=== PATIENT | male | born 1975 | race Caucasian/White ===

== ENCOUNTER 2017-02-09 12:38 | Observation (INO) | payer SELFPAY ==
[2017-02-09 14:41] LABS: BASOPHILS % (AUTO) 0.1 % (0.2-1.0); EOSINOPHILS % (AUTO) 0.1 % (0.9-2.9); HEMATOCRIT 45.3 % (42.0-54.0); HEMOGLOBIN 15.2 g/dL (13.5-18.0); LYMPHOCYTES # (AUTO) 0.6 X10^3/uL (1.3-2.9); LYMPHOCYTES % (AUTO) 4.4 % (21.0-51.0); MEAN CORPUSCULAR HGB CONC 33.6 g/dL (33.0-35.0); MEAN CORPUSCULAR VOLUME 86.3 fL (80.0-100.0); MEAN PLATELET VOLUME 10.2 fL (7.4-11.0); MONOCYTES # (AUTO) 0.1 x10^3/uL (0.3-0.8); MONOCYTES % (AUTO) 0.8 % (0.0-13.0); NEUTROPHILS # (AUTO) 12.4 x10^3/uL (2.2-4.8); NEUTROPHILS % (AUTO) 94.6 % (42.0-75.0); PLATELET COUNT 134 X10^3/uL (150.0-450.0); RED BLOOD COUNT 5.25 X10^6/uL (4.7-6.0); RED CELL DISTRIBUTION WIDTH 13.9 % (11.6-16.5); WHITE BLOOD COUNT 13.1 X10^3/uL (3.6-10.0)
[2017-02-09] MEDS ORDERED: NS 500 ML IV 500 ML IV ONE (15:01)
[2017-02-09 15:05] LABS: ALANINE AMINOTRANSFERASE 39 Units/L (12-78); ALBUMIN 3.7 g/dL (3.4-5.0); ALKALINE PHOSPHATASE 59 Units/L (46-116); ASPARTATE AMINO TRANSFERASE 23 Units/L (15-37); BLOOD UREA NITROGEN 19 mg/dL (7-18); CALCIUM 8.9 mg/dL (8.5-10.1); CARBON DIOXIDE 25.8 mmol/L (21-32); CHLORIDE 106 mmol/L (98-107); COR NA(FOR HYPERGLY) 143 mmol/L (136-145); CREATININE 1.18 mg/dL (0.70-1.30); GLUCOSE 172 mg/dL (65-99); SODIUM 141 mmol/L (136-145); TOTAL PROTEIN 7.3 g/dL (6.4-8.2); eGFR BLACK RACES > 60 (>60); eGFR NON BLACK RACES > 60 (>60)
[2017-02-09] MEDS: SOLU-MEDROL 125 MG VIAL IVP SCH ×2 (15:10→21:39)
[2017-02-09] MEDS: ZANTAC INJ 50 MG in NS 50 ML IV 50 ML IV SCH ×2 (15:10→23:39)
[2017-02-09] MEDS: NS 500 ML IV 500 ML IV SCH (15:10)
[2017-02-09 15:13] LABS: BAND NEUTROPHILS % 3 % (0-10); PLATELET MORPHOLOGY COMMENT NORMAL (NORMAL)
[2017-02-09 15:21] VITALS: BMI 33.7
[2017-02-09] MEDS ORDERED: PREVNAR 13 IM ONE (15:21)
[2017-02-09] MEDS ORDERED: AFLURIA IM ONE (15:21)
--- NOTE | 2017-02-09 22:45 | DR.H&P ---
H&P - History & Physical for Day of: H&P Date: 02/09/17 - Chief Complaint Chief Complaint: Rash with uncontrollable itching - Allergies Allergies/Adverse Reactions: Allergies Allergy/AdvReac Type Severity Reaction Status Date / Time Meperidine [From Demerol HCl] Allergy Unknown Verified 02/09/17 13:41 - History of Present Illness History of Present Illness: The patient is a 41yo WM who has a rash covering his extremities and torso. States that it is much worse and is unable to control the itching. States that it is now covering entire bosy. Denies respiratory distress. Did go to ED in [facility] and was given Solumedrol. The patient has seen dermatology and Regulatory Analyst with no answers thus far. Skin biopsies has revealed eczema. - Past Medical History Past Medical History: Hypertension - Past Surgical History Surgical History: Appendectomy, Ortho Surgery - Family History Family Medical History: Diabetes Mellitus, Cancer, Coronary Artery Disease, Hypertension - Social History Does patient currently use any type of tobacco product: Yes Have you used tobacco products in the last 12 months: Yes Type of Tobacco Use: Cigarettes How many years tobacco product used: 18 Does any household member use tobacco: No Alcohol Use: None Drug Use: None - Medications Home Medications: Clobetasol Prop 0.05% [TEMOVATE TOPICAL SOLN 0.05%] 1 applic TOP DAILY PRN 02/09 [History Confirmed 02/09/17] Lisinopril 1 tab PO DAILY 02/09/17 [History Confirmed 02/09/17] Silver Sulfadiazine [Silvadene] 1 applic TOP DAILY PRN 02/09/17 [History Confirmed 02/09/17] Triamcinolone Acetonide (Topic [Triamcinolone oint 0.5 % 15 gm] 1 applic TOP BID 02/09/17 [History Confirmed 02/09/17] - Review of Systems Constitutional: No Symptoms Reported Eyes: No Symptoms Reported ENT: No Symptoms Reported Respiratory: No Symptoms Reported Cardiovascular: No Symptoms Reported Gastrointestinal: No Symptoms Reported Genitourinary: No Symptoms Reported Musculoskeletal: No Symptoms Reported Skin: Rash Neurological: No Symptoms Reported - Physical Exam Vital Signs: Temperature 98.6 F Pulse Rate [Left Brachial] 111 Respiratory Rate 20 Blood Pressure [Left Arm] 140/84 O2 Sat by Pulse Oximetry 96 Oriented: Normal Eyes: Normal Ear: Normal Nose: Normal Throat: Normal Respiratory: Clear Throughout Cardiovascular: Normal : Normal Auscultation: Bowel Sounds: Normal Palpation: Normal Tenderness: Normal Skin: Rash (To Extremities and Torso), Red Musculoskeletal: Normal Psychiatric: Normal Mood Description: Calm Affect: Normal Speech Pattern: Clear - Assessment/Plan (1) Allergic reaction Qualifiers: Encounter type: initial encounter Qualified Code(s): T78.40XA - Allergy, unspecified, initial encounter Status: Acute Plan: Solumedrol IV (2) Hypertension Qualifiers: Hypertension type: essential hypertension Qualified Code(s): I10 - Essential (primary) hypertension Status: Acute Plan: Hold Lisinopril. Add Norvasc.
[2017-02-10] MEDS: ZANTAC INJ 50 MG in NS 50 ML IV 50 ML IV SCH ×3 (05:42→23:43)
[2017-02-10] MEDS: SOLU-MEDROL 125 MG VIAL IVP SCH ×3 (05:42→21:27)
[2017-02-10] MEDS ORDERED: KENALOG OINT TOP SCH (09:00)
[2017-02-10] MEDS ORDERED: NORVASC TAB 2.5 MG ONE (09:38)
[2017-02-10] MEDS: NORVASC TAB 2.5 MG PO SCH (10:12)
[2017-02-10] MEDS: XANAX PO SCH ×2 (14:36→20:37)
[2017-02-10] MEDS: VISTARIL PO SCH ×2 (14:36→23:43)
[2017-02-10] MEDS ORDERED: DAPSONE PO SCH (17:00)
[2017-02-10] MEDS: NS 500 ML IV 500 ML IV SCH (19:07)
[2017-02-10] MEDS ORDERED: SINGULAIR TAB 10 MG PO SCH (21:00)
[2017-02-11] MEDS: ZANTAC INJ 50 MG in NS 50 ML IV 50 ML IV SCH (05:59)
[2017-02-11] MEDS: SOLU-MEDROL 125 MG VIAL IVP SCH (06:00)
[2017-02-11] MEDS: VISTARIL PO SCH ×2 (06:00→14:17)
[2017-02-11 06:34] LABS: BASOPHILS # (AUTO) 0.1 X10^3/uL (0.0-0.1); BASOPHILS % (AUTO) 0.5 % (0.2-1.0); HEMATOCRIT 41.8 % (42.0-54.0); HEMOGLOBIN 13.5 g/dL (13.5-18.0); LYMPHOCYTES # (AUTO) 0.9 X10^3/uL (1.3-2.9); LYMPHOCYTES % (AUTO) 4.1 % (21.0-51.0); MEAN CORPUSCULAR HEMOGLOBIN 28.5 pg (27.0-34.0); MEAN CORPUSCULAR HGB CONC 32.4 g/dL (33.0-35.0); MEAN PLATELET VOLUME 10.8 fL (7.4-11.0); MONOCYTES # (AUTO) 1.2 x10^3/uL (0.3-0.8); MONOCYTES % (AUTO) 5.4 % (0.0-13.0); NEUTROPHILS # (AUTO) 20.3 x10^3/uL (2.2-4.8); PLATELET COUNT 125 X10^3/uL (150.0-450.0); RED BLOOD COUNT 4.75 X10^6/uL (4.7-6.0)
[2017-02-11 06:45] LABS: WHITE BLOOD COUNT 22.6 X10^3/uL (3.6-10.0)
[2017-02-11 06:46] LABS: ALANINE AMINOTRANSFERASE 39 Units/L (12-78); ALBUMIN 3.4 g/dL (3.4-5.0); ALKALINE PHOSPHATASE 53 Units/L (46-116); ASPARTATE AMINO TRANSFERASE 14 Units/L (15-37); BLOOD UREA NITROGEN 21 mg/dL (7-18); CALCIUM 9.1 mg/dL (8.5-10.1); CARBON DIOXIDE 22.9 mmol/L (21-32); CHLORIDE 108 mmol/L (98-107); COR NA(FOR HYPERGLY) 144 mmol/L (136-145); CREATININE 0.87 mg/dL (0.70-1.30); GLUCOSE 139 mg/dL (65-99); SODIUM 143 mmol/L (136-145); TOTAL PROTEIN 6.6 g/dL (6.4-8.2); eGFR BLACK RACES > 60 (>60); eGFR NON BLACK RACES > 60 (>60)
[2017-02-11 07:48] LABS: BAND NEUTROPHILS % 2 % (0-10)
[2017-02-11 07:49] LABS: PLATELET MORPHOLOGY COMMENT NORMAL (NORMAL)
[2017-02-11 08:19] VITALS: BP 121/70
--- NOTE | 2017-02-11 08:35 | RAD ---
Chest, one view Indication: Wheeze, allergic reaction Comparison: None Findings: The lungs are mildly hypoinflated, but essentially clear, without focal infiltrates, pleur al effusion, or pneumothorax. The heart size is normal. The bony thorax is unremarkable. Impression: No acute cardiopulmonary disease. Reported By:
[2017-02-11] MEDS ORDERED: NORVASC TAB 2.5 MG ONE (09:10)
[2017-02-11] MEDS: NORVASC TAB 2.5 MG PO SCH (09:30)
[2017-02-11] MEDS: XANAX PO SCH (09:30)
[2017-02-11] MEDS ORDERED: METHOTREXATE PO ONE (13:00)
[2017-02-11] MEDS ORDERED: PHARMACY CONSULT - DOSE _____ XX SCH (13:00)
[2017-02-11 13:09] LABS: HEMOGLOBIN A1C 5.5 % (4.5-6.2)
[2017-02-11 13:11] LABS: FREE T4 (FREE THYROXINE) 0.58 ng/dL (0.76-1.46); TSH (3RD GENERATION) 0.48 uIU/mL (0.358-3.74)
[2017-02-11] MEDS ORDERED: SOLU-MEDROL 125 MG VIAL IVP SCH (14:00)
--- NOTE | 2017-02-11 15:01 | PCM.PROG ---
Progress Note - Progress Note for Day of Date: 02/11/17 - Subjective Subjective: continued complaining of diffuse rash and itching. Patient is a 41- year-old white male who was admitted one day ago for diffuse macular papular rash and itching possible adverse reaction to medication, or severe atopic dermatitis. Plan to continue IV steroids, antihistamines, additional labs reevaluate every morning. Obtain biopsy results from patient's nail maker - Past Medical Family Social History Past Med/Fam/Surg Hx: No changes since H&P Allergies: Allergies Meperidine [From Demerol HCl] Allergy (Unknown, Verified 02/09/17 13:41) - Review of Systems ROS: No change since H&P - Vital Signs and I&O's Vital Signs: Temperature 97.7 F Pulse Rate [Left Brachial] 82 Respiratory Rate 20 Blood Pressure [Left Arm] 121/70 O2 Sat by Pulse Oximetry 94 Intake and Output: Intake & Output 02/09/17 02/10/17 02/11/17 02/12/17 11:59 11:59 11:59 11:59 Intake Total 2800 1480 Balance 2800 1480 - Physical Exam Oriented: Normal Eyes: Normal Ear: Normal Nose: Normal Throat: Normal Cardiovascular: Normal : Normal Auscultation: Bowel Sounds: Normal Tenderness: Normal Skin: Rash (To Extremities and Torso), Red Musculoskeletal: Normal Psychiatric: Normal Mood Description: Calm Affect: Normal Speech Pattern: Clear, Appropriate - Laboratory and Diagnostics Result Diagrams: 02/11/17 05:10 02/11/17 05:10 Labs: Laboratory WBC 22.6 X10^3/uL (3.6-10.0) H* 02/11/17 05:10 RBC 4.75 X10^6/uL (4.7-6.0) 02/11/17 05:10 Hgb 13.5 g/dL (13.5-18.0) 02/11/17 05:10 Hct 41.8 % (42.0-54.0) L 02/11/17 05:10 MCV 88.0 fL (80.0-100.0) 02/11/17 05:10 MCH 28.5 pg (27.0-34.0) 02/11/17 05:10 MCHC 32.4 g/dL (33.0-35.0) L 02/11/17 05:10 RDW 14.0 % (11.6-16.5) 02/11/17 05:10 Plt Count 125 X10^3/uL (150.0-450.0) L 02/11/17 05:10 Plt Count Comment Decreased (ADEQUATE) 02/11/17 05:10 MPV 10.8 fL (7.4-11.0) 02/11/17 05:10 Neut % 90.0 % (42.0-75.0) H 02/11/17 05:10 Lymph % 4.1 % (21.0-51.0) L 02/11/17 05:10 [place] % 5.4 % (0.0-13.0) 02/11/17 05:10 Eos % 0.0 % (0.9-2.9) L 02/11/17 05:10 Baso % 0.5 % (0.2-1.0) 02/11/17 05:10 Neut # 20.3 x10^3/uL (2.2-4.8) H 02/11/17 05:10 Lymph # 0.9 X10^3/uL (1.3-2.9) L 02/11/17 05:10 [place] # 1.2 x10^3/uL (0.3-0.8) H 02/11/17 05:10 Eos # 0.0 x10^3/uL (0.0-0.2) 02/11/17 05:10 Baso # 0.1 X10^3/uL (0.0-0.1) 02/11/17 05:10 Absolute Nucleated RBC 0.0 /100WBC 02/11/17 05:10 Total Counted 100 02/11/17 05:10 Neutrophils % (Manual) 88 % (39-76) H 02/11/17 05:10 Band Neutrophils % 2 % (0-10) 02/11/17 05:10 Lymphocytes % (Manual) 4 % (13-43) L 02/11/17 05:10 Monocytes % (Manual) 6 % (4-9) 02/11/17 05:10 Plt Morphology Comment Normal (NORMAL) 02/11/17 05:10 RBC Morphology Normal (NORMAL) 02/11/17 05:10 ESR 2 MM/HOUR (0-15) 02/10/17 14:15 Sodium 143 mmol/L (136-145) 02/11/17 05:10 Corrected Sodium 144 mmol/L (136-145) 02/11/17 05:10 Potassium 4.7 mmol/L (3.5-5.1) 02/11/17 05:10 Chloride 108 mmol/L (98-107) H 02/11/17 05:10 Carbon Dioxide 22.9 mmol/L (21-32) 02/11/17 05:10 BUN 21 mg/dL (7-18) H 02/11/17 05:10 Creatinine 0.87 mg/dL (0.70-1.30) 02/11/17 05:10 Est GFR (MDRD) Af Amer > 60 (>60) 02/11/17 05:10 Est GFR (MDRD) Non-Af > 60 (>60) 02/11/17 05:10 Glucose 139 mg/dL (65-99) H 02/11/17 05:10 Hemoglobin A1c 5.5 % (4.5-6.2) 02/11/17 05:10 Calcium 9.1 mg/dL (8.5-10.1) 02/11/17 05:10 Corrected Calcium TNP 02/11/17 05:10 Total Bilirubin 0.20 mg/dL (0.2-1.0) 02/11/17 05:10 AST 14 Units/L (15-37) L 02/11/17 05:10 ALT 39 Units/L (12-78) 02/11/17 05:10 Alkaline Phosphatase 53 Units/L (46-116) 02/11/17 05:10 C-Reactive Protein 1.10 mg/L (0-3.0) 02/10/17 14:15 Total Protein 6.6 g/dL (6.4-8.2) 02/11/17 05:10 Albumin 3.4 g/dL (3.4-5.0) 02/11/17 05:10 Globulin 3.2 g/dL (2.5-4.5) 02/11/17 05:10 Albumin/Globulin Ratio 1.1 Ratio (1.1-2.1) 02/11/17 05:10 Free T4 0.58 ng/dL (0.76-1.46) L 02/11/17 05:10 TSH 3rd Generation 0.480 uIU/mL (0.358-3.74) 02/11/17 05:10 - Plan (1) Atopic dermatitis Status: Acute Qualifiers: Atopic dermatitis type: A Plan: REPEAT AM LABS. NORMA, TSH, FREE T4, CRP AND SED RATE. DECREASE SOLU MEDROL 80MG IV Q 8HRS. ENCOURAGE ORAL HYDRATION, SKIN CARE (2) Pruritic dermatitis Status: Acute Plan: ANTIHISTAMINES, SINGULAIR. CONTINUE TOPICAL STEROIDS (3) Anxiety Status: Acute Plan: XANAX PRN (4) Hypertension Status: Acute Qualifiers: Hypertension type: essential hypertension Qualified Code(s): I10 - Essential (primary) hypertension Plan: Hold Lisinopril. Add Norvasc.
--- NOTE | 2017-02-11 15:07 | PCM.DCPLAN ---
Discharge Summary - Admission Date Date of Admission: 02/09/17 - Discharge Date Discharge Date: 02/11/17 - Admission Diagnoses (1) Atopic dermatitis Status: Acute (2) Pruritic dermatitis Status: Acute (3) Anxiety Status: Acute (4) Hypertension Status: Acute - Discharge Diagnoses Discharge Diagnosis: SAME ADMISSION - Discharge Medications Discharge Medications: Clobetasol Prop 0.05% [TEMOVATE TOPICAL SOLN 0.05%] 1 applic TOP DAILY PRN 02/09 [History] Lisinopril 1 tab PO DAILY 02/09/17 [History] Silver Sulfadiazine [Silvadene] 1 applic TOP DAILY PRN 02/09/17 [History] Triamcinolone Acetonide (Topic [Triamcinolone oint 0.5 % 15 gm] 1 applic TOP BID 02/09/17 [History] Alprazolam [Xanax] 0.5 mg PO HS #30 tab 02/11/17 [Rx] Cephalexin [Keflex Cap 500 mg] 500 mg PO BID #20 cap 02/11/17 [Rx] Gentamicin Topical Crm [GENTAMICIN TOPICAL CRM 0.1%] 1 applic TOP BID 14 Days [Rx] Hydroxyzine HCl 25 mg Tab [ATARAX *] 25 mg PO Q8H PRN #60 tab 02/11/17 [Rx] Prednisone [Prednisone Tab 10 mg] 10 mg PO QAM #28 tab 02/11/17 [Rx] - Hospital Course Vital Signs: Temperature 97.7 F Pulse Rate [Left Brachial] 82 Respiratory Rate 20 Blood Pressure [Left Arm] 121/70 O2 Sat by Pulse Oximetry 94 Latest Lab Results: Laboratory Last Values WBC 22.6 X10^3/uL (3.6-10.0) H* 02/11/17 05:10 RBC 4.75 X10^6/uL (4.7-6.0) 02/11/17 05:10 Hgb 13.5 g/dL (13.5-18.0) 02/11/17 05:10 Hct 41.8 % (42.0-54.0) L 02/11/17 05:10 MCV 88.0 fL (80.0-100.0) 02/11/17 05:10 MCH 28.5 pg (27.0-34.0) 02/11/17 05:10 MCHC 32.4 g/dL (33.0-35.0) L 02/11/17 05:10 RDW 14.0 % (11.6-16.5) 02/11/17 05:10 Plt Count 125 X10^3/uL (150.0-450.0) L 02/11/17 05:10 Plt Count Comment Decreased (ADEQUATE) 02/11/17 05:10 MPV 10.8 fL (7.4-11.0) 02/11/17 05:10 Neut % 90.0 % (42.0-75.0) H 02/11/17 05:10 Lymph % 4.1 % (21.0-51.0) L 02/11/17 05:10 [place] % 5.4 % (0.0-13.0) 02/11/17 05:10 Eos % 0.0 % (0.9-2.9) L 02/11/17 05:10 Baso % 0.5 % (0.2-1.0) 02/11/17 05:10 Neut # 20.3 x10^3/uL (2.2-4.8) H 02/11/17 05:10 Lymph # 0.9 X10^3/uL (1.3-2.9) L 02/11/17 05:10 [place] # 1.2 x10^3/uL (0.3-0.8) H 02/11/17 05:10 Eos # 0.0 x10^3/uL (0.0-0.2) 02/11/17 05:10 Baso # 0.1 X10^3/uL (0.0-0.1) 02/11/17 05:10 Absolute Nucleated RBC 0.0 /100WBC 02/11/17 05:10 Total Counted 100 02/11/17 05:10 Neutrophils % (Manual) 88 % (39-76) H 02/11/17 05:10 Band Neutrophils % 2 % (0-10) 02/11/17 05:10 Lymphocytes % (Manual) 4 % (13-43) L 02/11/17 05:10 Monocytes % (Manual) 6 % (4-9) 02/11/17 05:10 Plt Morphology Comment Normal (NORMAL) 02/11/17 05:10 RBC Morphology Normal (NORMAL) 02/11/17 05:10 ESR 2 MM/HOUR (0-15) 02/10/17 14:15 Sodium 143 mmol/L (136-145) 02/11/17 05:10 Corrected Sodium 144 mmol/L (136-145) 02/11/17 05:10 Potassium 4.7 mmol/L (3.5-5.1) 02/11/17 05:10 Chloride 108 mmol/L (98-107) H 02/11/17 05:10 Carbon Dioxide 22.9 mmol/L (21-32) 02/11/17 05:10 BUN 21 mg/dL (7-18) H 02/11/17 05:10 Creatinine 0.87 mg/dL (0.70-1.30) 02/11/17 05:10 Est GFR (MDRD) Af Amer > 60 (>60) 02/11/17 05:10 Est GFR (MDRD) Non-Af > 60 (>60) 02/11/17 05:10 Glucose 139 mg/dL (65-99) H 02/11/17 05:10 Hemoglobin A1c 5.5 % (4.5-6.2) 02/11/17 05:10 Calcium 9.1 mg/dL (8.5-10.1) 02/11/17 05:10 Corrected Calcium TNP 02/11/17 05:10 Total Bilirubin 0.20 mg/dL (0.2-1.0) 02/11/17 05:10 AST 14 Units/L (15-37) L 02/11/17 05:10 ALT 39 Units/L (12-78) 02/11/17 05:10 Alkaline Phosphatase 53 Units/L (46-116) 02/11/17 05:10 C-Reactive Protein 1.10 mg/L (0-3.0) 02/10/17 14:15 Total Protein 6.6 g/dL (6.4-8.2) 02/11/17 05:10 Albumin 3.4 g/dL (3.4-5.0) 02/11/17 05:10 Globulin 3.2 g/dL (2.5-4.5) 02/11/17 05:10 Albumin/Globulin Ratio 1.1 Ratio (1.1-2.1) 02/11/17 05:10 Free T4 0.58 ng/dL (0.76-1.46) L 02/11/17 05:10 TSH 3rd Generation 0.480 uIU/mL (0.358-3.74) 02/11/17 05:10 Hospital Course: mISTER Dawson IS A 41-YEAR-OLD WHITE MALE WHO WAS A DIRECT ADMIT FROM dR. Shepherd'S OFFICE AFTER PRESENTING WITH A DIFFUSE RASH AND UNCONTROLLABLE ITCHING. tHE PATIENT HAS BEEN COVERED WITH A RASH FROM HIS EXTREMITIES AND TORSO WHICH HAS BEEN MUCH WORSE IN THE LAST COUPLE DAYS. pATIENT COMPLAINS OF SEVERE ITCHING SHE DENIES ANY RESPIRATORY DISTRESS OR WHEEZING. pATIENT DID GO TO THE EMERGENCY ROOM AND [facility] PRIOR TO ADMISSION AND WAS TREATED WITH sOLU-mEDROL. pATIENT HAS PREVIOUSLY SEEN A CLEARING DISTRIBUTION CLERK AND AN WINDOWS AND DOORS INSTALLER WITH SKIN BIOPSIES COLLECTED. bIOPSIES RESULTING IN ATOPIC DERMATITIS/ECZEMA. pATIENT HAS A PAST MEDICAL HISTORY OF HYPERTENSION ONLY. pATIENT WAS ON LISINOPRIL WHICH WAS STOPPED AND CHANGED TO nORVASC. oN ADMISSION PATIENT HAD cbc cmp AND RECEIVED iv STEROIDS. oN DAY 2 PATIENT'S RASH WAS SLIGHTLY IMPROVED BUT . PATIENT CONTINUED WITH DIFFUSE REDNESS AND SEVERE ITCHING. miguel crp STAT RIGHT tsh AND FREE t4 WELL a1C WERE COLLECTED. miguel STILL PENDING WELL tsh FREE t4 WHICH WILL BE REVIEWED WITH FOLLOW-UP WITH pcp. wE REVIEWED THE BIOPSY FOR PATIENT'S CLEARING DISTRIBUTION CLERK WHICH REVEALED A TYPE OF ECZEMA. wE DISCUSSED THE NEED FOR OUTPATIENT FOLLOW- UP. pATIENT IS A SELF-PAY PATIENT AND FELT MUCH BETTER TODAY AFTER RECEIVING iv STEROIDS AND REQUESTED TO GO HOME DUE TO FINANCIAL REASONS. pATIENT'S CONDITION OVERALL WAS STABLE WITH NO RESPIRATORY DISTRESS. wE DISCUSSED IMMUNOSUPPRESSIVE THERAPY RECOMMENDED BY THE CLEARING DISTRIBUTION CLERK. pATIENT WAS GIVEN A DOSE OF METHOTREXATE 10 MG TODAY AND WILL SEE HIS pcp, dR. Shepherd, IN ONE WEEK FOR ADDITIONAL DOSING INSTRUCTIONS. pATIENT WAS ALSO GIVEN A PRESCRIPTION FOR kEFLEX 500 MG BY MOUTH TWICE A DAY FOR 10 DAYS FOR SECONDARY INFECTION DUE TO BREAKING OF THE SKIN FROM ITCHING. pATIENT WAS ALSO GIVEN GENTAMICIN OINTMENT FOR OPEN SORES. pATIENT WAS GIVEN HYDROXYZINE/aTARAX ANTIHISTAMINE FOR ITCHING AND A LOW-DOSE xANAX FOR INSOMNIA RELATED TO PREDNISONE USE. pATIENT WAS GIVEN PREDNISONE 20 MG DAILY FOR 7 DAYS THEN DECREASE TO 10 MG DAILY FOR 7 DAYS AND THEN DECREASE TO 5 MG DAILY FOR 7 DAYS. dISCUSSED AT LENGTH SKIN CONDITIONING WELL IMPORTANCE OF ORAL HYDRATION. pATIENT AND FAMILY BOTH VERBALIZE UNDERSTANDING AND PATIENT'S CONDITION WAS STABLE AND PATIENT WAS INSTRUCTED TO DISCHARGE HOME TO RESUME nORVASCCONTINUED WITH ITCHING AND AGITATION WELL - Discharge Plan Disposition: 01 HOME, SELF-CARE Condition: Stable Prescriptions: Alprazolam [Xanax] 0.5 mg PO HS #30 tab Cephalexin [Keflex Cap 500 mg] 500 mg PO BID #20 cap Gentamicin Topical Crm [GENTAMICIN TOPICAL CRM 0.1%] 1 applic TOP BID 14 Days Hydroxyzine HCl 25 mg Tab [ATARAX *] 25 mg PO Q8H PRN #60 tab PRN Reason: Allergy/Itching Prednisone [Prednisone Tab 10 mg] 10 mg PO QAM #28 tab - Follow ups/Referrals Follow ups/Referrals: SMITH LARKIN [Nurse Practitioner] - 1 WEEK - Instructions Instructions: Dressing Change, Personal Hygiene, Alprazolam tablets, Contact Precautions, [id number], Allergies, [id number], Wound Infection, Drug Allergy, [id number], Cephalexin tablets or capsules, Prednisone tablets, Managing Your High Blood Pressure, Gentamicin skin cream or ointment, Hydroxyzine capsules or tablets, Hypertension Additional Instructions: taper dose of prednisone methotrexate 10mg po today, f/u smith larkin pcp in one week for additional dosing skin care plan hydrate hydroxyzine 26 q 8hrs prn nausea gentamycin, keflex 500mg po bid Forms: Patient Portal
[2017-02-14 07:38] LABS: ANTI-NUCLEAR ANTIBODY TEST None Detected (None Detected)
== END 2017-02-11 14:30 | disposition home or self-care (01) ==
LOC: MED/SURG 12:38
PROVIDERS: ADMIT Internal Medicine; ATTEND Internal Medicine
PROC: 3E0234Z Introduction of Serum, Toxoid and Vaccine into Muscle, Percutaneous Approach (ICD-10-PCS; principal; 2017-02-09)
DX: T78.40XA Allergy, unspecified, initial encounter (principal); L20.89 Other atopic dermatitis; L30.8 Other specified dermatitis; D72.828 Other elevated white blood cell count; F41.8 Other specified anxiety disorders; I10 Essential (primary) hypertension; Z23 Encounter for immunization
CPT/HCPCS: 36415; 71010; 80053; 82533; 83036; 84439; 84443; 85025; 85652; 86140; 86308; 87040; A4216; A4222; Q0177; G0378; J2780; J2930; J8610